=== PATIENT | male | born 1945 | race Caucasian/White ===

== ENCOUNTER → 2019-04-11 | Day surgery (SDC) | payer MEDICARE ==
[2019-04-10 09:33] VITALS: BMI 29.5
[~2019-04-11] MED LIST: BUPIVACAINE (PF) 0.5% 30 ML VIAL INTRAARTIC ONE; HYDROmorphone 0.5 MG/0.5 ML SYRINGE IVP PRN; LACTATED RINGERS 1,000 ML IV ONE; LACTATED RINGERS 1,000 ML IV SCH; LIDOCAINE 0.5%-EPI 1:200,000 50 ML VIAL INTRAARTIC ONE; LIDOCAINE 1% 20 ML VIAL (10MG/ML) FOR IV START INTRADERMA ONE; LIDOCAINE 1% INJ 10MG/ML (20 ML MDV) ONE; MIDAZOLAM 2 MG/2 ML VIAL ONE; ONDANSETRON 4 MG/2 ML VIAL IVP PRN; PROPOFOL 10 MG/ML 20 ML VIAL IV ONE; Pre Op ABX Message 1 EACH MISC MISCELLANE ONE; ePHEDrine SULFATE/0.9% NACL/PF 50 MG/5 ML SYRINGE IV ONE; fentaNYL (PF) 50 MCG/ML 2 ML AMP ONE
[2019-04-11 13:45] VITALS: TEMP 97.9
--- NOTE | 2019-04-11 13:58 | P.OP ---
Date of Procedure: 04/11/19 Preoperative Diagnosis: Right carpal tunnel syndrome Postoperative Diagnosis: Right carpal tunnel syndrome Procedure(s) Performed: Right endoscopic carpal tunnel release Anesthesia: TOYA, local Surgeon: Suleiman Pereira Estimated Blood Loss (ml): 1 Condition: stable Disposition: PACU Indications for Procedure: The patient is a very pleasant 73-year-old male who was diagnosed with right carpal tunnel syndrome. Treatment options (and associated risks and benefits) were discussed in the office. The patient elected to proceed with surgical release. In preop, the patient denied any additional questions or concerns. Consent forms were signed. The surgical site was confirmed and marked preoperatively. Description of Procedure: The patient was positioned supine with the right arm on an arm board. A tourniquet was applied. General anesthesia was administered uneventfully. A time-out was performed, confirming patient identifiers, the operative side, site and the procedure to be performed: all team members expressed agreement. Using aseptic technique, local anesthetic was injected into the subcutaneous tissues around the planned incision. The right upper extremity was then prepped and draped in standard, sterile fashion. The limb was exsanguinated with an Esmarch and the tourniquet was inflated. Loupe magnification was used throughout the case for optimum visualization. A transverse incision was marked just proximal to the wrist flexion crease, in line with the radial border of the ring finger. The skin was sharply incised and the subcutaneous tissues were bluntly spread. These were noted to be quite thickened. The volar carpal fascia was identified and sharply incised. The median nerve was identified immediately below this. It had a flat, dusky appearance and was covered with thickened perineural tissue, consistent with chronic compression. The introitus to the carpal tunnel was extremely tight. To facilitate atraumatic entry, the volar carpal fascia proximal and distal to the incision was released with scissors under direct visualization. Attempts to insert an smooth elevator were met with resistance and traction against the nerve. The thickened subcutaneous tissue below the dermis was bluntly with spreading dissection and the volar carpal fascia was further released under direct visualization. A [place] elevator was used to gently release adhesions over the nerve. The synovial elevator was again inserted and passed smoothly into the carpal tunnel without traction or tension on the nerve. This was used to gently release adhesions on the underside of the transverse carpal ligament. The washboard effect was palpable. A dilator was inserted to sound and enlarge the carpal tunnel. The hamate hook was palpable ulnarly. The small side-specific guide and camera were inserted. The transverse carpal ligament was clearly visualized above. The distal edge of the ligament was identified and palpated with a probe. A rasp was used to clear the remaining synovial adhesions. The endoscopic blade was inserted and the distal half of the ligament was sharply incised. This was quite thickened and dense. Residual distal transverse fibers were released and then the proximal portion of the ligament was divided. Wide release of ligament was visually confirmed. The camera was removed. After release, the nerve was still firmly encased in thickened perineural tissue. A neurolysis was performed which substantially improved the mobility of the nerve. The tourniquet was released after 27 minutes at 250 mmHg. Excellent hemostasis was obtained with held pressure. The wound was thoroughly irrigated with normal saline. The incision was closed with interrupted 4-0 Nylon sutures. Additional local anesthetic with epinephrine was injected for adjunctive postoperative pain control and hemostasis. A soft, sterile dressing was applied. All sponge, needle and instrument counts were correct at the end of the case. The patient tolerated the procedure well. He was awakened uneventfully and was transferred to recovery in stable condition.
[2019-04-11 14:30] VITALS: RESP 17
[2019-04-11 14:44] VITALS: BP 143/72; PULSE 86
== END | disposition home or self-care (01) ==
LOC: OR 10:44
PROVIDERS: ATTEND Orthopaedic Surgery
DX: G56.01 Carpal tunnel syndrome, right upper limb (principal); M72.0 Palmar fascial fibromatosis [Dupuytren]; E78.5 Hyperlipidemia, unspecified; I10 Essential (primary) hypertension; K21.9 Gastro-esophageal reflux disease without esophagitis; K76.0 Fatty (change of) liver, not elsewhere classified; Z87.891 Personal history of nicotine dependence; Z79.899 Other long term (current) drug therapy; Z88.6 Allergy status to analgesic agent; Z88.0 Allergy status to penicillin; Z86.711 Personal history of pulmonary embolism
CPT/HCPCS: 29848; J2250; J2405; J2001; J3010; J2704